=== PATIENT | male | born 1990 ===

== ENCOUNTER 2020-12-17 05:41 | Day surgery (SDC) | payer OTHER ==
[2020-12-15 12:26] LABS: CALCIUM 8.7 mg/dL (8.5-10.1); CREATININE 0.81 mg/dL (0.7-1.3)
[2020-12-15 12:27] LABS: INTERNATIONAL NORMALIZED RATIO 1.04 (0.93-1.1); PROTHROMBIN TIME 11.1 Seconds (9.6-11.5)
[2020-12-15 12:36] LABS: BASOPHILS % (AUTO) 1 % (0-1); EOSINOPHILS % (AUTO) 1 % (1-7); LYMPHOCYTES % (AUTO) 33 % (22-44); MEAN CORPUSCULAR HGB CONC 34.5 g/dL (33.2-36.2); MEAN PLATELET VOLUME 8.6 fL (7.4-10.4); MONOCYTES % (AUTO) 10 % (2-9); NEUTROPHILS % (AUTO) 56 % (42-75); PLATELET COUNT 209 x10^3/uL (130-400); RED BLOOD COUNT 5.34 x10^6/uL (4.38-5.82); RED CELL DISTRIBUTION WIDTH 14.1 % (9.4-14.8)
[2020-12-15 12:38] LABS: MD NO
[2020-12-15 12:42] LABS: ANION GAP 5 mmol/L (5-15); CHLORIDE 104 mmol/L (98-107)
[2020-12-15 12:53] LABS: MICROSCOPIC NOT IND
[~2020-12-17] VITALS: Ht 185.4 cm; Wt 83.3 kg
[~2020-12-17 05:41] MED LIST: NONE PER PT
[2020-12-17 06:03] VITALS: BP 113/75
[2020-12-17] MEDS ORDERED: CHLORHEXIDINE 15 ML UDC ONE (06:07)
[2020-12-17] MEDS ORDERED: MIDAZOLAM 1 MG/ML, 2ML ONE (06:10)
[2020-12-17] MEDS ORDERED: FENTANYL PF 250 MCG/5ML ONE ×2 (06:10→07:22)
[2020-12-17] MEDS ORDERED: PROPOFOL 100 ML ONE (06:16)
[2020-12-17] MEDS ORDERED: CEFAZOLIN 1,000 MG ONE (06:19)
[2020-12-17] MEDS ORDERED: NEOSTIGMINE 1 MG/ML, 10ML ONE (06:19)
[2020-12-17] MEDS ORDERED: GLYCOPYRROLATE 0.2MG/1ML, 5ML ONE (06:19)
[2020-12-17] MEDS ORDERED: PROPOFOL 10 MG/ML, 20ML ONE (06:19)
[2020-12-17] MEDS ORDERED: ROCURONIUM 10MG/ML,5ML ONE (06:19)
[2020-12-17] MEDS ORDERED: BACITRACIN 50,000 UNIT ONE (06:22)
[2020-12-17] MEDS ORDERED: VANCOMYCIN 1,000 MG ONE (06:22)
[2020-12-17] MEDS ORDERED: EPINEPHRINE 1 MG/ML, 1ML ONE (06:22)
[2020-12-17] MEDS ORDERED: BUPIVACAINE/PF 0.5% ONE (06:22)
[2020-12-17] MEDS ORDERED: HYDROmorphone 1 MG/ML, 1ML INJ IVPush PRN ×2 (06:30→09:00)
[2020-12-17] MEDS ORDERED: hydrALAzine 20 MG/ML, 1ML IV PRN (06:30)
[2020-12-17] MEDS ORDERED: LACTATED RINGERS 1,000 ML IV SCH (06:30)
[2020-12-17] MEDS ORDERED: MEPERIDINE/PF 25MG/0.5ML IVPush PRN (06:30)
[2020-12-17] MEDS ORDERED: ONDANSETRON 2MG/ML, 2ML IVPush PRN ×2 (06:30→09:00)
[2020-12-17] MEDS ORDERED: CHLORHEXIDINE 15 ML UDC PO ONE (06:30)
[2020-12-17] MEDS ORDERED: morphine SULFATE 10 MG/ML, 1ML IVPush PRN (06:30)
[2020-12-17] MEDS ORDERED: LABETALOL 5MG/ML, 20ML IV PRN (06:30)
[2020-12-17] MEDS ORDERED: OXYcodone 5 MG/5 ML ORAL.SOL UDC PO PRN (06:30)
[2020-12-17] MEDS ORDERED: ACETAMINOPHEN 325 MG TABLET PO PRN (06:30)
[2020-12-17] MEDS ORDERED: HYDR-3237 PO (06:59)
[2020-12-17] MEDS ORDERED: CYCL10TA2 PO (07:00)
[2020-12-17] MEDS ORDERED: VANCOMYCIN 1,000 MG IM ONE (07:41)
[2020-12-17] MEDS ORDERED: ONDANSETRON 2MG/ML, 2ML ONE (08:45)
[2020-12-17] MEDS ORDERED: DIPHENHYDRAMINE 50 MG/ML, 1ML IVPush PRN (09:00)
[2020-12-17] MEDS ORDERED: KETOROLAC 30 MG/1 ML IVPush ONE (09:00)
[2020-12-17] MEDS ORDERED: HYDROcodone/APAP 5/325 TABLET PO PRN (09:00)
[2020-12-17] MEDS ORDERED: CYCLOBENZAPRINE 10 MG TABLET PO PRN (09:00)
[2020-12-17] MEDS ORDERED: DIPHENHYDRAMINE 50 MG/ML, 1ML IM PRN (09:00)
[2020-12-17] MEDS ORDERED: PROMETHAZINE 25 MG/ML, 1ML IM PRN (09:00)
[2020-12-17] MEDS ORDERED: PHARMACY MAY ADJ FOR RENAL FX MC PRN (09:00)
[2020-12-17] MEDS ORDERED: METHOCARBAMOL 1,000 MG in DEXTROSE 5% 100 ML IV ONE (09:00)
[2020-12-17] MEDS ORDERED: CEFAZOLIN PMX 1GM/50ML 50 ML IVPB SCH (09:00)
[2020-12-17] MEDS ORDERED: DIPHENHYDRAMINE 50 MG CAPSULE PO PRN (09:00)
[2020-12-17] MEDS ORDERED: FENTANYL PF 100 MCG/2ML ONE (09:12)
[2020-12-17] MEDS: FENTANYL PF 100 MCG/2ML IV PRN ×3 (09:14→09:41)
[2020-12-17] MEDS ORDERED: ACETAMINOPHEN 650 MG/20.3 ML UDC ONE (09:23)
[2020-12-17] MEDS ORDERED: KETOROLAC 30 MG/1 ML ONE (09:24)
[2020-12-17] MEDS ORDERED: OXYcodone 5 MG/5 ML ORAL.SOL UDC ONE (09:24)
== END 2020-12-17 11:05 | disposition home or self-care (01) ==
LOC: OUT 05:41
PROVIDERS: ATTEND Neurological Surgery
DX: M51.17 Intervertebral disc disorders with radiculopathy, lumbosacral region (principal); M48.07 Spinal stenosis, lumbosacral region; Z20.822 Contact with and (suspected) exposure to COVID-19; Z79.01 Long term (current) use of anticoagulants; Z79.891 Long term (current) use of opiate analgesic; Z79.899 Other long term (current) drug therapy
CPT/HCPCS: 36415; 63030; 71046; 72100; 80048; 81003; 85025; 85610; 85730; 93005; 95938; 95941; J0171; J0690; J1885; J2250; J2405; J2704; J2710; J2800; J3010; J3370; J7120; U0003